=== PATIENT | female | born 1950 | race Caucasian/White ===

== ENCOUNTER 2018-04-06 14:38 | Inpatient (IN) | payer MEDICARE, OTHER ==
[~2018-04-06] VITALS: Ht 167.6 cm; Wt 74.1 kg
[2018-04-06] MEDS ORDERED: SODIUM CHLORIDE 0.9% 1000ML 1,000 ML IV STA (15:07)
[2018-04-06] MEDS ORDERED: PIPER-TAZ 3.375 GM 50 ML IV STA (15:07)
[2018-04-06] MEDS ORDERED: ACETAMINOPHEN 325 MG TAB PO STA (15:07)
[2018-04-06] MEDS ORDERED: METHYLPREDNISOLONE SOD SUCC 125 MG/2ML VIAL IV STA (15:07)
[2018-04-06] MEDS ORDERED: ASPIRIN 81 MG CHEW TAB PO ONE ×2 (15:15→17:00)
[2018-04-06] MEDS ORDERED: LEVALBUTEROL HCL SOLN NEBU 1.25 MG/3 ML NEB INH ONE (15:15)
[2018-04-06] MEDS ORDERED: IPRATROPIUM BROMIDE 0.02% 2.5 ML NEB NEB ONE (15:15)
[2018-04-06 15:24] LABS: BASOPHILS % 0.2 % (0.0-1.0); HEMATOCRIT 44.7 % (34.2-44.1); LYMPHOCYTES # (AUTO) 1.4 (1.0-3.2); LYMPHOCYTES % 9.8 % (18.0-39.1); MEAN CORPUSCULAR HEMOGLOBIN 30.7 pg (28-32); MEAN CORPUSCULAR HGB CONC 33.6 g/dL (31-35); MEAN CORPUSCULAR VOLUME 91.4 fL (81-99); MONOCYTES # (AUTO) 1.1 (0.2-0.8); NEUTROPHILS # (AUTO) 11.3 (2.1-6.9); NEUTROPHILS % 81.3 % (38.7-80.0); PLATELET COUNT 280 x10e3/uL (140-360); RED BLOOD COUNT 4.89 x10e6/uL (3.6-5.1)
[2018-04-06 15:34] LABS: INR 1.27; PROTHROMBIN TIME 14.9 seconds (11.9-14.5)
[2018-04-06 15:35] LABS: PARTIAL THROMBOPLASTIN TIME 32.7 seconds (23.8-35.5)
[2018-04-06 15:42] LABS: ALANINE AMINOTRANSFERASE 19 IU/L (0-55); ALBUMIN 3.4 g/dL (3.5-5.0); ALBUMIN/GLOBULIN RATIO 0.7 (0.8-2.0); ALKALINE PHOSPHATASE 88 IU/L (40-150); ANION GAP 15.9 mmol/L (8-16); BLOOD UREA NITROGEN 10 mg/dL (7-26); BUN/CREATININE RATIO 13 (6-25); CALCIUM 9.9 mg/dL (8.4-10.2); CARBON DIOXIDE 25 mmol/L (22-29); CHLORIDE 93 mmol/L (98-107); CREATINE KINASE 55 IU/L (29-168); CREATININE, SERUM 0.79 mg/dL (0.57-1.11); EST GLOMERULAR FILTRATION RATE > 60 ML/MIN (60-); GLUCOSE 108 mg/dL (74-118); MAGNESIUM 1.8 MG/DL (1.3-2.1); POTASSIUM 3.9 mmol/L (3.5-5.1); SODIUM 130 mmol/L (136-145)
--- NOTE | 2018-04-06 15:47 | Diagnostic Imaging Report ---
EXAM: XR CHEST 1 VIEW DATE: 04/06/2018 3:07 PM INDICATION: Shortness of breath COMPARISON: None FINDINGS: Lines and Tubes: None Heart and Mediastinum: No acute cardiomediastinal findings. Lungs and Pleura: Ill-defined opacity left mid and lower lung. Bones and Soft Tissues: No acute findings. IMPRESSION: 1. Probable pneumonia left mid/lower lung. Chest x-ray follow-up recommended. Signed by: Dr. Santino Salmeron MD on 04/06/2018 3:44 PM
[2018-04-06 16:04] LABS: CLARITY,URINE SL CLOUDY (CLEAR); COLOR,URINE YELLOW (YELLOW); LEUKOCYTE ESTERASE ,URINE 1+ (NEGATIVE)
[2018-04-06 16:05] LABS: BILIRUBIN,URINE 1+ (NEGATIVE); KETONES,URINE 2+ (NEGATIVE); NITRITE,URINE NEGATIVE (NEGATIVE); PROTEIN,URINE DIPSTICK 2+ (NEGATIVE); URINE UROBILINOGEN 0.2 mg/dL (0.2 - 1)
[2018-04-06 16:14] LABS: BACTERIA,URINE MODERATE /HPF; EPITHELIAL CELLS,URINE MANY /LPF; RBC,URINE 0-5 /HPF (0-5); WBC,URINE (MAN) 21-50 /HPF (0-5)
[2018-04-06] MEDS ORDERED: HYDRALAZINE HCL 20 MG/ML VIAL IV PRN (17:00)
[2018-04-06] MEDS ORDERED: ACETAMINOPHEN 325 MG TAB PO PRN (17:00)
[2018-04-06] MEDS: METHYLPREDNISOLONE SOD SUCC 40 MG/ML VIAL IV SCH ×2 (18:00→23:45)
[2018-04-06] MEDS: PIPER-TAZ 3.375 GM 50 ML IV SCH ×2 (18:00→23:45)
[2018-04-06 18:10] VITALS: BP 118/56
[2018-04-06] MEDS ORDERED: [UNRECOGNIZED DRUG - OTHER] PO (18:26)
[2018-04-06] MEDS: SODIUM CHLORIDE 0.9% 1000ML 1,000 ML IV SCH (18:38)
[2018-04-06] MEDS: IPRATROPIUM BROMIDE 0.02% 2.5 ML NEB NEB SCH ×2 (19:35→23:15)
[2018-04-06] MEDS: ALBUTEROL SULF 0.083% NEB SOLN 3 ML NEB NEB SCH ×2 (19:35→23:15)
[2018-04-06 20:17] VITALS: BP 108/58
[2018-04-06 22:41] VITALS: BP 108/58
[2018-04-06 22:57] VITALS: BP 108/58
[2018-04-07] VITALS (9 sets, daily range): BP systolic 106–147; BP diastolic 53–67
[2018-04-07] MEDS: SODIUM CHLORIDE 0.9% 1000ML 1,000 ML IV SCH ×3 (00:53→16:53)
[2018-04-07] MEDS: ALBUTEROL SULF 0.083% NEB SOLN 3 ML NEB NEB SCH ×6 (02:48→23:20)
[2018-04-07] MEDS: METHYLPREDNISOLONE SOD SUCC 40 MG/ML VIAL IV SCH ×4 (05:57→23:48)
[2018-04-07] MEDS: PIPER-TAZ 3.375 GM 50 ML IV SCH ×4 (05:57→23:48)
[2018-04-07 07:53] LABS: ALANINE AMINOTRANSFERASE 16 IU/L (0-55); ALBUMIN 2.7 g/dL (3.5-5.0); ALBUMIN/GLOBULIN RATIO 0.6 (0.8-2.0); ALKALINE PHOSPHATASE 70 IU/L (40-150); ANION GAP 11.7 mmol/L (8-16); BLOOD UREA NITROGEN 9 mg/dL (7-26); BUN/CREATININE RATIO 15 (6-25); CALCIUM 8.7 mg/dL (8.4-10.2); CARBON DIOXIDE 26 mmol/L (22-29); CHLORIDE 104 mmol/L (98-107); CREATININE, SERUM 0.59 mg/dL (0.57-1.11); EST GLOMERULAR FILTRATION RATE > 60 ML/MIN (60-); GLUCOSE 118 mg/dL (74-118); POTASSIUM 3.7 mmol/L (3.5-5.1); SODIUM 138 mmol/L (136-145)
[2018-04-07 08:15] LABS: CREATINE KINASE 60 IU/L (29-168)
[2018-04-07] MEDS: IPRATROPIUM BROMIDE 0.02% 2.5 ML NEB NEB SCH ×4 (08:20→23:20)
[2018-04-08] VITALS (8 sets, daily range): BP systolic 130–153; BP diastolic 60–74
[2018-04-08] MEDS: SODIUM CHLORIDE 0.9% 1000ML 1,000 ML IV SCH ×2 (02:43→16:50)
[2018-04-08] MEDS: ALBUTEROL SULF 0.083% NEB SOLN 3 ML NEB NEB SCH ×6 (03:00→22:32)
[2018-04-08] MEDS: METHYLPREDNISOLONE SOD SUCC 40 MG/ML VIAL IV SCH ×3 (05:59→21:04)
[2018-04-08] MEDS: PIPER-TAZ 3.375 GM 50 ML IV SCH ×4 (05:59→23:38)
[2018-04-08 06:50] LABS: BASOPHILS % 0.1 % (0.0-1.0); HEMATOCRIT 39.4 % (34.2-44.1); HEMOGLOBIN 12.6 g/dL (12.0-16.0); LYMPHOCYTES # (AUTO) 1.2 (1.0-3.2); LYMPHOCYTES % 14.7 % (18.0-39.1); MEAN CORPUSCULAR HEMOGLOBIN 29.8 pg (28-32); MEAN CORPUSCULAR VOLUME 93.1 fL (81-99); MONOCYTES # (AUTO) 0.6 (0.2-0.8); MONOCYTES % 6.9 % (4.4-11.3); NEUTROPHILS # (AUTO) 6.3 (2.1-6.9); NEUTROPHILS % 77.8 % (38.7-80.0); PLATELET COUNT 318 x10e3/uL (140-360); RED BLOOD COUNT 4.23 x10e6/uL (3.6-5.1); RED CELL DISTRIBUTION WIDTH 13.4 % (11.7-14.4)
[2018-04-08] MEDS: IPRATROPIUM BROMIDE 0.02% 2.5 ML NEB NEB SCH ×3 (07:00→18:54)
[2018-04-08] MEDS: FAMOTIDINE 20 MG/2 ML VIAL IV SCH (09:02)
[2018-04-08] MEDS ORDERED: ENOXAPARIN SOD INJ 40 MG/0.4 ML SYR SC SCH (17:00)
[2018-04-09] VITALS: BP 127/57
[2018-04-09] MEDS: IPRATROPIUM BROMIDE 0.02% 2.5 ML NEB NEB SCH ×2 (02:45→07:51)
[2018-04-09] MEDS: ALBUTEROL SULF 0.083% NEB SOLN 3 ML NEB NEB SCH ×2 (02:45→07:51)
[2018-04-09 04:00] VITALS: BP 158/72
[2018-04-09] MEDS: PIPER-TAZ 3.375 GM 50 ML IV SCH (05:29)
[2018-04-09] MEDS: SODIUM CHLORIDE 0.9% 1000ML 1,000 ML IV SCH (05:29)
[2018-04-09 07:05] VITALS: BP 159/94
[2018-04-09 07:44] VITALS: BP 159/94
[2018-04-09] MEDS ORDERED: LORATADINE10 MG PO (08:36)
[2018-04-09] MEDS ORDERED: LEVAQUIN500 MG PO (08:36)
[2018-04-09] MEDS ORDERED: MUCINEX DM ER1 EACH PO (08:36)
[2018-04-09] MEDS ORDERED: PREDNISONE20 MG PO (08:36)
[2018-04-09] MEDS ORDERED: TESSALON PERLE100 MG PO (08:36)
[2018-04-09] MEDS ORDERED: PEPCID20 MG PO (08:36)
[2018-04-09] MEDS: METHYLPREDNISOLONE SOD SUCC 40 MG/ML VIAL IV SCH (08:49)
[2018-04-09] MEDS: FAMOTIDINE 20 MG/2 ML VIAL IV SCH (08:49)
--- NOTE | 2018-04-09 09:01 | Discharge Summary ---
PRINCIPAL DIAGNOSES 1. Hyponatremia. 2. Left lung pneumonia. 3. Urinary tract infection. 4. Cigarette abuse. 5. Overweight state. 6. Acute exacerbation of chronic obstructive pulmonary disease. SECONDARY DIAGNOSES 1. Cigarette abuse. 2. Chronic obstructive pulmonary disease. CHIEF COMPLAINT: Chest discomfort and shortness of breath. HISTORY OF PRESENT ILLNESS: This is a 67-year-old woman with chest discomfort and shortness of breath. Refer to the H and P for further details. HOSPITAL COURSE: The patient was found to have acute exacerbation of COPD. She had left lung pneumonia and urinary tract infection treated with antibiotic therapy. She was also treated with steroids. She had hyponatremia which resolved. Patient continues to smoke cigarettes. She has been counseled on cigarette cessation. She was overweight. Patient was counseled on cessation. She is doing better and currently appropriate for discharge and will follow up. DISCHARGE MEDICATIONS: Per electronic medical record and include Levaquin, prednisone, loratadine, and antitussive medication. FOLLOWUP: Primary care doctor in 1 week. Follow up with Dr. Neumann in 1 week. CONDITION ON DISCHARGE: Stable and improved. DISCHARGE LOCATION: Home. She will continue home oxygen therapy. BETHANY SILVEIRA MD Job#: [id number] [place]
--- NOTE | 2018-04-09 09:09 | Progress Note ---
DATE: April 09, 2018 TIME OF SERVICE: 7:15 a.m. OVERNIGHT: Feeling a little better. REVIEW OF SYSTEMS: Denies any dizziness or chest pain. No fever, chills, sweats, nausea, vomiting or diarrhea. Denied headache or blurred vision. VITAL SIGNS: Reviewed. OBJECTIVE GENERAL: A tired-appearing woman resting in bed. HEENT: Anicteric. CARDIOVASCULAR: Normal S1 and S2. LUNGS: She has decreased breath sounds throughout. ABDOMEN: Soft, nontender. EXTREMITIES: No edema. SKIN: Dry. PSYCHIATRIC: Flat affect. LABS: Reviewed. MEDICATIONS: Reviewed. ASSESSMENT AND PLAN: A 67-year-old woman. 1. Acute exacerbation of chronic obstructive pulmonary disease. 2. Left lung pneumonia. 3. Urinary tract infection. 4. Overweight state. 5. Cigarette abuse. 6. Hyponatremia. PLAN 1. Continue steroids. 2. Continue antibiotics. 3. Follow up sodium. 4. Continue oxygen support. 5. Discharge planning. Job#: [id number]
== END 2018-04-09 10:18 | disposition home or self-care (01) | DRG 871 ==
LOC: ER 14:38 → ERHOLD 16:53 → MED/SURG3 17:50
PROVIDERS: ADMIT Internal Medicine; ATTEND Internal Medicine
DX: A41.9 Sepsis, unspecified organism (principal); J18.9 Pneumonia, unspecified organism; J44.0 Chronic obstructive pulmonary disease with (acute) lower respiratory infection; E87.1 Hypo-osmolality and hyponatremia; N30.00 Acute cystitis without hematuria; J44.1 Chronic obstructive pulmonary disease with (acute) exacerbation; E66.3 Overweight; F17.210 Nicotine dependence, cigarettes, uncomplicated; Z68.26 Body mass index [BMI] 26.0-26.9, adult; G40.909 Epilepsy, unspecified, not intractable, without status epilepticus; Z79.52 Long term (current) use of systemic steroids
CPT/HCPCS: 36415; 71045; 80053; 81001; 82550; 82553; 83605; 83735; 84484; 85025; 85610; 85730; 87040; 87070; 87086; 87205; 93005; 94640; 96361; 99285; J1650; J2543; J2920; J2930; J7030